=== PATIENT | male | born 1995 | race Caucasian/White ===

== ENCOUNTER 2020-11-17 22:00 | Emergency (ER) | payer OTHER, SELFPAY ==
--- NOTE | 2020-11-17 22:03 | ED.GENADUL_ITS ---
Discharge Plan Disposition Patient Disposition: HOME Condition: Good Discharge Details Clinical Impression: Fever, Rash Primary Care Provider: Jayme José ED Provider: Jorge Garland Home Meds and New Rx's Prescriptions: New doxycycline hyclate 100 mg tablet 100 mg PO BID Qty: 28 RF: 0 Continued escitalopram oxalate [Lexapro] 10 mg Tablet 10 mg PO DAILY RF: 0 Discharge Instructions Instructions: Doxycycline (By mouth) Additional Instructions: Symptoms and rash seem consistent with Lyme or possible other tick borne disease. Since labs are pending from your PCP we will simply start treatment with oral doxycycline. Contact PCP for lab results drawn previously. Discontinue doxycycline if tickborne panel negative and follow-up with primary care. Return to ED for severe worsening headache, mental status changes, neurologic changes, chest pain, difficulty breathing. Referrals: Primary Care Provider [Outside] Medical Decision Making Given the time of year, geographic location, symptomatology and type of rash presumed Lyme or other tickborne infection until proven otherwise. Laboratory studies have already been sent by PCP. Patient is nontoxic-appearing with normal vital signs and normal neurological status. Will start doxycycline and discussed side effects including photosensitivity. Contact PCP for results of lab testing. If negative tickborne panel follow-up with PCP for further evaluation and management. If worsening symptoms especially severe headache, mental status change, neurologic change, chest pain, shortness of breath return to ED. HPI General Mode of arrival: ambulatory . Date/Time Provider Initiated Documentation: 11/17/20 22:02 . Limitations to Documentation: no limitations . Information obtained by: patient and RN notes reviewed . HPI Narrative: Patient presents to ED with fever for the last 3 days with associated chills, headache, rash. Patient seen by PCP yesterday with laboratory studies drawn. No results back at this time. No management initiated other than Tylenol and Motrin. Patient reports headache is mostly posterior and somewhat in the neck. He has a slight cough but no chest pain or shortness of breath. He has abdominal discomfort but no real pain vomiting or diarrhea. He has rash on the left side of his neck and his left posterior thigh. Areas of rash are uncomfortable but not painful and not pruritic. Patient does work outside but denies any known tick bite. Fever tonight was 104.7 prompting him to come to the ED. Related Data Home Medications Medication Instructions Recorded Confirmed doxycycline hyclate 100 mg PO BID #28 tab 11/17/20 escitalopram oxalate [Lexapro] 10 mg PO DAILY 11/17/20 11/17/20 Previous Rx's Medication Instructions Recorded doxycycline hyclate 100 mg PO BID #28 tab 11/17/20 Allergies Allergy/AdvReac Type Severity Reaction Status Date / Time No Known Allergies Allergy Unverified 11/17/20 22:11 Review of Systems Narrative: As documented in HPI otherwise negative as below. Const: no weakness Resp: no SOB, pleuritic pain CV: no CP, diaphoresis, edema, syncope GI: no abdominal pain, nausea, vomiting, diarrhea Neuro: no numbness, focal weakness, confusion PFSH Medical History Depression Surgical History No significant past surgical history Social History Smoking/Tobacco Use Status: Never Smoking risk assessment performed?: Yes Alcohol Intake: current Alcohol Intake frequency: a few times a week Alcohol type: beer Drug use: Never Do you feel safe at home: Yes Do you feel safe in your relationship?: Yes Exam Narrative Exam Narrative: Const: WDWN male in NAD. Looks well. HEENT: NC/AT. Normal facial exam. Eyes: Normal conjunctiva and sclera. Neck: Supple. Trachea midline. Lungs: Normal respiratory effort. Lungs are clear. Cor: RRR without murmur/gallop. Good radial pulses. GI: Soft. NT/ND. No guarding or rebound. Neuro: A+O x 3. Normal speech, mentation, gait. Cranial nerves II - XII gross ly intact. No gross motor or sensory deficit. Ext: No C/C/E. Skin: Warm and dry. Erythematous ovoid rash on neck and posterior thigh, dark centrally though not true bull's eye. Nontender. Warm to touch.
[2020-11-17 22:05] VITALS: BP 114/74; PULSE 89; RESP 18; TEMP 37.6; O2SAT 96
[2020-11-17] MEDS: Doxycycline Hyclate 100 MG CAP PO (22:33)
== END 2020-11-17 22:40 | disposition home or self-care (01) ==
PROVIDERS: Emergency Provider Emergency Medicine; PCP Pediatrics
DX: R50.9 Fever, unspecified (principal); R21 Rash and other nonspecific skin eruption
CPT/HCPCS: 99283